=== PATIENT | female | born 1985 | race Caucasian/White ===

== ENCOUNTER 2018-01-03 06:57 | Emergency (ER) | payer OTHER ==
[2018-01-03 07:09] VITALS: TEMP 98.2
--- NOTE | 2018-01-03 07:50 | ED ---
General Adult HPI - General Chief complaint: Recheck/Abnormal Lab/Rx Stated complaint: REHAB Time Seen by Provider: 01/03/18 07:22 Source: patient, RN notes reviewed Mode of arrival: ambulatory Limitations: no limitations - History of Present Illness Initial comments: Patient is a pleasant 32-year-old female presenting to the emergency department requesting rehab. Patient states she smokes methamphetamine several times a week for the past 3-4 years. Patient did smoke methamphetamine prior to coming to the emergency department today. Patient states she wants to stop smoking regular cigarettes as well as methamphetamine. Patient denies any depression or suicidal ideation. No other complaints. - Related Data Allergies Allergy/AdvReac Type Severity Reaction Status Date / Time No Known Allergies Allergy Verified 01/03/18 07:09 Review of Systems ROS Statement: Those systems with pertinent positive or pertinent negative responses have been documented in the HPI. ROS Other: All systems not noted in ROS Statement are negative. Constitutional: Denies: fever Eyes: Denies: eye pain ENT: Denies: ear pain Respiratory: Denies: cough Cardiovascular: Denies: chest pain Endocrine: Denies: fatigue Gastrointestinal: Denies: abdominal pain Genitourinary: Denies: dysuria Musculoskeletal: Denies: back pain Skin: Denies: rash Neurological: Denies: headache Past Medical History Past Medical History: No Reported History History of Any Multi-Drug Resistant Organisms: None Reported Past Surgical History: No Surgical Hx Reported Smoking Status: Current every day smoker Past Alcohol Use History: Occasional Past Drug Use History: Methamphetamine General Exam Limitations: no limitations General appearance: alert, in no apparent distress Head exam: Present: atraumatic Eye exam: Present: normal appearance, PERRL, EOMI ENT exam: Present: normal oropharynx Neck exam: Present: normal inspection Respiratory exam: Present: normal lung sounds bilaterally Cardiovascular Exam: Present: tachycardia GI/Abdominal exam: Present: soft. Absent: tenderness Extremities exam: Present: normal inspection Neurological exam: Present: alert Psychiatric exam: Present: normal affect, normal mood Skin exam: Present: normal color Course Vital Signs 01/03/18 07:04 Temperature 98.2 F Pulse Rate 117 H Respiratory 28 H Rate Blood Pressure 149/94 O2 Sat by Pulse 97 Oximetry - Reevaluation(s) Reevaluation #1: 01/03/18 08:41 I did go back to re-evaluate patient however she has eloped. Disposition Clinical Impression: Methamphetamine abuse Disposition: HOME SELF-CARE Condition: Stable Instructions: Methamphetamine Abuse (ED) Additional Instructions: Stop smoking methamphetamine. Stop all drug use. Please follow-up with primary care physician in the next day or 2 for recheck. Please follow-up with substance abuse, list provided. Return for worsening symptoms or other concerns. Is patient prescribed a controlled substance at d/c from ED?: No Referrals: Laxmi Arora MD [REFERRING] - 1-2 days Jodi Bui MD [STAFF PHYSICIAN] - 1-2 days Time of Disposition: 08:42
[2018-01-03 09:08] VITALS: BP 135/76; PULSE 102; RESP 16
== END 2018-01-03 09:07 | disposition home or self-care (01) ==
LOC: EC 06:57
DX: F15.10 Other stimulant abuse, uncomplicated (principal); R00.0 Tachycardia, unspecified; F17.210 Nicotine dependence, cigarettes, uncomplicated
CPT/HCPCS: 99283

== ENCOUNTER → 2019-02-07 | Outpatient (CLI) | payer BC, OTHER ==
--- NOTE | 2019-02-08 10:11 | US ---
EXAMINATION TYPE: US thyroid st tissue head/neck DATE OF EXAM: 02/07/2019 COMPARISON: NONE CLINICAL HISTORY: Z34.81 1st [id number] Thyroid nodule. Thyroid nodule GLAND SIZE: Right Lobe: 5.4 x 1.9 x 2.2 cm Overall Parenchyma: homogenous Left Lobe: 4.1 x 1.5 x 1.7 cm Overall Parenchyma: homogeneous Isthmus Thickness: 0.3 cm NODULES RIGHT: # of nodules measured on right: 0 LEFT: # of nodules measured on left: 0 ISTHMUS: # of nodules measured in the isthmus: 0 Bilateral neck scanned, no evidence of lymphadenopathy. IMPRESSION: Enlargement of the right thyroid lobe. The examination is otherwise unremarkable.
== END | disposition home or self-care (01) ==
LOC: RADUSMAIN 17:31
PROVIDERS: ATTEND Obstetrics & Gynecology
DX: O99.281 Endocrine, nutritional and metabolic diseases complicating pregnancy, first trimester (principal); E07.89 Other specified disorders of thyroid; Z3A.00 Weeks of gestation of pregnancy not specified
CPT/HCPCS: 76536

== ENCOUNTER 2019-07-10 08:11 | Emergency (ER) | payer BC, OTHER ==
[2019-07-10 08:17] VITALS: PULSE 90; RESP 20; TEMP 97.8
--- NOTE | 2019-07-10 08:47 | ED ---
Chest Pain HPI - General Chief Complaint: Chest Pain Stated Complaint: lung pain Time Seen by Provider: 07/10/19 08:20 Source: patient, RN notes reviewed Mode of arrival: wheelchair - History of Present Illness Initial Comments: This is a 34-year-old female who is currently 8 months who states she did have some left CVA area pain for the past 3-4 days with this morning after coughing she heard and felt a pop and has severe pain in the local area she denies any fevers chills nausea vomiting sweats no cough or phlegm production other than that mentioned above no rash no dysuria hematuria no other complaints this time. She is scheduled to have a next month on the . She also schedule see her doctor tomorrow. No other modifying factors patient state s she did take Tylenol is morning already for pain. MD Complaint: chest pain - Related Data Allergies Allergy/AdvReac Type Severity Reaction Status Date / Time No Known Allergies Allergy Verified 07/10/19 08:17 Review of Systems ROS Statement: Those systems with pertinent positive or pertinent negative responses have been documented in the HPI. ROS Other: All systems not noted in ROS Statement are negative. Past Medical History Past Medical History: No Reported History History of Any Multi-Drug Resistant Organisms: None Reported Past Surgical History: No Surgical Hx Reported Past Psychological History: No Psychological Hx Reported Smoking Status: Current every day smoker Past Alcohol Use History: Occasional Past Drug Use History: None Reported, Methamphetamine General Exam - General Exam Comments Initial Comments: This is a well-developed well-nourished awake alert oriented 3 female General appearance: alert, in no apparent distress Head exam: Present: atraumatic, normocephalic, normal inspection Eye exam: Present: normal appearance, PERRL, EOMI. Absent: scleral icterus, conjunctival injection, periorbital swelling ENT exam: Present: normal exam, mucous membranes moist Neck exam: Present: normal inspection. Absent: tenderness, meningismus, lymphadenopathy Respiratory exam: Present: normal lung sounds bilaterally, chest wall tenderness (Tennis palpation of the left CVA region no overt step-off or crepitation there is tenderness over the intercostal as well as rib area at this region. No rashes noted). Absent: respiratory distress, wheezes, rales, rhonchi, stridor Cardiovascular Exam: Present: regular rate, normal rhythm, normal heart sounds. Absent: systolic murmur, diastolic murmur, rubs, gallop, clicks GI/Abdominal exam: Present: soft, normal bowel sounds, other (Distended consistent with gestational age). Absent: distended, tenderness, guarding, rebound, rigid Extremities exam: Present: normal inspection, full ROM, normal capillary refill. Absent: tenderness, pedal edema, joint swelling, calf tenderness Back exam: Present: normal inspection Neurological exam: Present: alert, oriented X3, CN II-XII intact Psychiatric exam: Present: normal affect, normal mood Skin exam: Present: warm, dry, intact, normal color. Absent: rash Course Vital Signs 07/10/19 08:14 Temperature 97.8 F Pulse Rate 90 Respiratory 20 Rate Blood Pressure 131/87 O2 Sat by Pulse 100 Oximetry Chest Pain MDM - MDM I did review the imaging and report no acute findings also the UA was unremarkable. I did discuss findings with the patient the presentation is consistent with musculoskeletal pain she likely pulse of intercostal muscles when she did a maneuver this morning. She will take Tylenol we did discuss dosing warm compresses to the area she does have a follow-up with her doctor next week. Her point was changed by her physician this morning. Disposition Clinical Impression: Chest wall muscle strain, Intrauterine Disposition: HOME SELF-CARE Condition: Good Instructions (If sedation given, give patient instructions): Muscle Strain (ED), Musculoskeletal Pain (ED) Additional Instructions: Warm compresses to the area as needed, Tylenol for pain, keep your follow-up wit h your physician. Is patient prescribed a controlled substance at d/c from ED?: No Referrals: None,Stated [Primary Care Provider] - 1-2 days
[2019-07-10 09:10] LABS: Bacteria,Urine Occasional /hpf; Mucus,Urine Many /hpf; RBC,Urine 2 /hpf (0-5); Squamous Epithelial Cell,Urine 28 /hpf (0-4); WBC,Urine 4 /hpf (0-5)
[2019-07-10 09:14] LABS: Color,Urine Yellow
[2019-07-10 09:15] LABS: Appearance,Urine Slightly Cloudy (Clear); Bilirubin,Urine Negative (Negative); Blood,Urine Negative (Negative); Glucose,Urine (UA) Negative (Negative); Ketones,Urine Negative (Negative); Leukocyte Esterase,Urine Small (Negative); Nitrite,Urine Negative (Negative); Protein,Urine Negative (Negative); Specific Gravity,Urine 1.005 (1.001-1.035); Urobilinogen,Urine <2.0 mg/dL (<2.0)
--- NOTE | 2019-07-10 09:24 | XR ---
EXAMINATION TYPE: XR ribs LT w pa chest xray DATE OF EXAM: 07/10/2019 COMPARISON: Chest x-ray 03/17/2009 HISTORY: Left rib pain following coughing TECHNIQUE: Chest examined in the frontal projection. Left ribs are examined in 2 views. Patient was c arefully shielded for . FINDINGS: No acute left rib fractures are evident. No pneumothorax is evident. Heart and mediastinum appear normal. Pulmonary vasculature is normal. IMPRESSION: 1. Normal chest and left ribs.
[2019-07-10 10:46] VITALS: BP 128/69
== END 2019-07-10 10:46 | disposition home or self-care (01) ==
LOC: EC 08:11
DX: O9A.213 Injury, poisoning and certain other consequences of external causes complicating pregnancy, third trimester (principal); S29.011A Strain of muscle and tendon of front wall of thorax, initial encounter; O99.333 Smoking (tobacco) complicating pregnancy, third trimester; F17.200 Nicotine dependence, unspecified, uncomplicated; X50.9XXA Other and unspecified overexertion or strenuous movements or postures, initial encounter; Y93.89 Activity, other specified; Z3A.34 34 weeks gestation of pregnancy
CPT/HCPCS: 81001; 99283

== ENCOUNTER 2019-08-08 06:07 | Inpatient (IN) | payer BC, OTHER ==
[2019-08-06 11:47] VITALS: BMI 35.9
--- NOTE | 2019-08-06 16:06 | P.HPOB ---
History of Present Illness H&P Date: 08/06/19 Chief Complaint: Intrauterine at term: Previous sections Anu is a 34-year-old with 2 prior sections who arrives for repeat section. Risks/benefits/alternatives to this procedure were reviewed with the patient in detail and did include but were not limited to damage to bladder, bowel, vascular injuries, nerve damage, bleeding and infection. Her Precis course generally speaking has been unremarkable and she is feeling well at this time. She is scheduled for repeat section. On physical exam vital signs are stable and afebrile. She is a well-developed well-nourished female whose HEENT is unremarkable. Heart regular, lungs clear, extremities without pain. Abdomen soft gravid uterus is noted. Extremities without pain. Intrauterine at term: Prior sections Plan repeat low transverse section Past Medical History Past Medical History: No Reported History History of Any Multi-Drug Resistant Organisms: None Reported Past Surgical History: Section Additional Past Surgical History / Comment(s): C-SEC X 2 Past Anesthesia/Blood Transfusion Reactions: No Reported Reaction Smoking Status: Current every day smoker - Past Family History Mother Family Medical History: No Reported History Medications and Allergies Home Medications Medication Instructions Recorded Confirmed Type Pnv,Calcium 72/Iron/Folic Acid 1 each PO DAILY 08/06/19 08/06/19 History [ Plus Tablet] Allergies Allergy/AdvReac Type Severity Reaction Status Date / Time No Known Allergies Allergy Verified 08/06/19 11:40 Exam Osteopathic Statement: *. No significant issues noted on an osteopathic structural exam other than those noted in the History and Physical/Consult. Intake and Output 08/06/19 08/06/19 08/06/19 06:59 14:59 22:59 Other: Weight 94.801 kg
[2019-08-08] MEDS ORDERED: CITRIC ACID-SODIUM CITRATE 15 ML CUP PO ONE (06:16)
[2019-08-08] MEDS: LACTATED RINGERS 1,000 ML IV SCH ×4 (06:28→22:08)
[2019-08-08 07:46] LABS: Basophils % (A) 0 %; Eosinophils # (A) 0.1 k/uL (0-0.7); Eosinophils % (A) 1 %; HCT 36.2 % (34.0-46.0); HGB 11.5 gm/dL (11.4-16.0); Lymphocytes # (A) 3.4 k/uL (1.0-4.8); Lymphocytes % (A) 23 %; MCH 27.5 pg (25.0-35.0); MCHC 31.8 g/dL (31.0-37.0); MCV 86.4 fL (80.0-100.0); Mean Platelet Volume 8.3; Monocytes # (A) 0.8 k/uL (0-1.0); Monocytes % (A) 5 %; Neutrophils % (A) 68 %; Platelet Count 439 k/uL (150-450); RBC 4.19 m/uL (3.80-5.40); RDW 14.3 % (11.5-15.5); WBC 14.7 k/uL (3.8-10.6)
[2019-08-08] MEDS ORDERED: NALBUPHINE 10 MG/ML (1 ML AMP) ONE (08:00)
[2019-08-08] MEDS ORDERED: OXYTOCIN 10 UNIT/ML 1 ML VIAL ONE (08:00)
[2019-08-08] MEDS ORDERED: ONDANSETRON 4 MG/2 ML VIAL ONE (08:00)
[2019-08-08] MEDS ORDERED: KETOROLAC 30 MG/ML 1 ML VIAL ONE (08:00)
[2019-08-08] MEDS ORDERED: MORPHINE SULFATE (PF) 0.3 MG/0.3 ML SYR ONE (08:00)
[2019-08-08] MEDS ORDERED: diphenhydrAMINE 50 MG CAP PO PRN (09:06)
[2019-08-08] MEDS ORDERED: METOCLOPRAMIDE 5 MG/ML 2 ML VIAL IVP PRN (09:06)
[2019-08-08] MEDS ORDERED: NALOXONE 0.4 MG/ML 1 ML VIAL IV PRN (09:06)
[2019-08-08] MEDS ORDERED: diphenhydrAMINE 50 MG/ML 1 ML VIAL IVP PRN ×2 (09:06)
[2019-08-08] MEDS ORDERED: ONDANSETRON 4 MG/2 ML VIAL IVP PRN (09:06)
[2019-08-08] MEDS ORDERED: diphenhydrAMINE 25 MG CAP PO PRN (09:06)
[2019-08-08] MEDS ORDERED: ACETAMINOPHEN TAB 325 MG TAB PO PRN (09:06)
[2019-08-08] MEDS ORDERED: ZOLPIDEM 5 MG TAB PO PRN (09:06)
--- NOTE | 2019-08-08 09:10 | P.OP ---
Date of Procedure: 08/08/19 Preoperative Diagnosis: Intrauterine at term: Prior sections Postoperative Diagnosis: Same Procedure(s) Performed: Repeat low transverse section Anesthesia: spinal Surgeon: Ruddy Lizama [employer] Technician #1: Bailey Quinn Estimated Blood Loss (ml): 400 IV fluids (ml): 700 Urine output (ml): 200 Pathology: none sent Condition: stable Disposition: floor Operative Findings: Male scores of 8 and 9 at one and 5 minutes Fowler and weight was 8 lbs. 9 oz. Description of Procedure: Patient was taken to the operating suite where a spinal anesthetic was found be adequate. She was prepped and draped in the normal sterile fashion and placed in dorsal supine position with leftward tilt. Initially a Pfannenstiel skin incision was made and this incision was then carried through to the underlying layer of the fascia with the second knife. Fascia was then nicked in the midline and this opening was extended laterally with Oswald scissors. Superior and inferior aspect of this incision were then grasped tented up and bluntly and sharply dissected off the rectus muscles. Rectus muscles were then divided the midline and sharp dissection the peritoneum was done. This opening was then extended superiorly and inferiorly with good visualization of both bowel bladder using Metzenbaum scissors. Once this was completed bladder blade was placed bladder flap identified and with metastases from scissors and carried across face uterus. It was then bluntly dissected out of the operative field. Knife was then used to incise uterus was fully developed with a hemostat was clear fluid noted. It was then extended bluntly and head was atraumatically delivered. Mouth nares bulb suctioned anterior posterior shoulders easily delivered once baby was fully delivered umbilical cord was clamped cut usual fashion an nursery personnel was present to assume care. Placenta was then delivered intact and Pitocin was added to the IV. Uterus was then exteriorized cleared of clots and debris and closed in 1 layer with 0 Vicryl suture. Once excellent hemostasis was obtained blood and debris was suctioned from the posterior cul-de-sac and uterus was reinserted into the abdomen. Peritoneal layer was then closed with 0 Vicryl suture. Fascial layer was closed with 0 Vicryl suture. 3-0 Vicryl was used to reapproximate the subcuticular layer and the skin was closed with 3-0 Vicryl subcuticular. Sponge, lap, needle counts were all correct 2. Patient was then taken to the recovery room in stable and satisfactory condition.
[2019-08-08] MEDS: NICOTINE 14MG/24HR PATCH TRANSDERM SCH (10:41)
[2019-08-08] MEDS: KETOROLAC 30 MG/ML 1 ML VIAL IVP PRN ×2 (16:40→22:21)
[2019-08-08] MEDS: SENNOSIDES-DOCUSATE SODIUM 1 EACH TAB PO SCH (19:54)
[2019-08-09] MEDS: KETOROLAC 30 MG/ML 1 ML VIAL IVP PRN (05:31)
--- NOTE | 2019-08-09 07:14 | P.PN ---
Progress Note - Text Progress Note Date: 08/09/19 Patient doing well. Pain treated. Ambulating without weakness or paresthesia. Denies headache or pruritis. POD#1 s/p with spinal duramorph - doing well
[2019-08-09] MEDS: SENNOSIDES-DOCUSATE SODIUM 1 EACH TAB PO SCH ×2 (08:19→19:43)
--- NOTE | 2019-08-09 09:06 | P.PNOBGPC ---
Subjective - Subjective Principal diagnosis: Postop day 1 Interval history: Anu is seen and evaluated. She says she feels fine she is not having any complaints. She is requesting discharge home. However, she has not used her incentive spirometry despite multiple instructions and requests. Her left lung continues to have significant wheezing and her right long had minimal excursion when I was listening. We'll have rest for therapy, and reevaluate to determine if she needs a breathing treatment. Consideration for pulmonology is also possible. Chest x-ray has been ordered. Currently Anu is very upset and tearful as I informed her that I would not discharge her in her current con dition. Her vital signs otherwise are stable and she is afebrile. I have significant concern that with her lack of cooperation with the incentive spirometry that she will go home and not use it and end up having atelectasis change into potentially pneumonia. From what I can gather with her discussions with me her bigger issue is wanting to go home no matter what and I don't believe this is simply a matter that she wants to smoke or if her the nicotine patch is not high enough dose that she is still having withdrawal symptoms and we need to adjust the dose to 21 mg patch. Objective - Vital Signs Latest vital signs: Vital Signs Temp Pulse Resp BP BP Pulse Ox 08/09/19 08:00 97.6 F 80 18 115/56 97 08/09/19 03:35 98.3 F 72 18 98/52 96 08/09/19 00:00 98.4 F 78 16 141/67 97 08/08/19 20:00 97.9 F 67 16 125/76 97 08/08/19 16:00 98.2 F 82 16 140/87 99 08/08/19 12:00 98.0 F 73 16 118/82 98 08/08/19 10:45 98.0 F 65 16 138/79 98 08/08/19 10:15 68 16 117/66 93 L 08/08/19 09:45 66 16 128/78 98 08/08/19 09:30 75 16 136/63 98 08/08/19 09:15 90 16 165/104 97 Intake and Output 08/08/19 08/09/19 08/09/19 22:59 06:59 14:59 Intake Total 600 Output Total 1000 Balance -1000 600 Intake: IV 600 Output: Urine 1000 Uretheral (Morales) 400 Other: Voiding Method Toilet # Voids 1 1 - Exam Lungs: right: crackles/rales, diminished throughout, left: wheezes Chest: Normal S1, Normal S2 Extremities: Present: normal Abdomen: Present: normal appearance, soft. Absent: distention, tenderness Incision: Present: normal, dry, intact Uterus: Present: normal, firm
[2019-08-09] MEDS: HYDROcodone/APAP 7.5-325MG 1 EACH TAB PO PRN ×3 (09:18→23:13)
[2019-08-09] MEDS: ALBUTEROL NEBULIZED 2.5 MG/3 ML INHALATION PRN ×3 (09:27→20:56)
--- NOTE | 2019-08-09 10:02 | XR ---
EXAMINATION TYPE: XR chest 2V DATE OF EXAM: 08/09/2019 HISTORY: pneumonia. REFERENCE: Previous study dated 07/10/2019. FINDINGS: The lungs remain clear. Pleural spaces are clear. The heart is not enlarged. IMPRESSION: NO ACUTE INTRATHORACIC ABNORMALITY.
[2019-08-09] MEDS: NICOTINE 14MG/24HR PATCH TRANSDERM SCH (10:06)
[2019-08-09] MEDS: IBUPROFEN 600 MG TAB PO PRN (19:43)
[2019-08-10] MEDS: IBUPROFEN 600 MG TAB PO PRN ×2 (06:23→12:36)
[2019-08-10] MEDS: ALBUTEROL NEBULIZED 2.5 MG/3 ML INHALATION PRN ×2 (07:20→13:06)
[2019-08-10 08:16] VITALS: BP 137/80; RESP 16; TEMP 98
[2019-08-10] MEDS: SENNOSIDES-DOCUSATE SODIUM 1 EACH TAB PO SCH (08:52)
[2019-08-10] MEDS: NICOTINE 14MG/24HR PATCH TRANSDERM SCH (10:08)
[2019-08-10] MEDS: HYDROcodone/APAP 7.5-325MG 1 EACH TAB PO PRN (10:08)
[2019-08-10 13:17] VITALS: PULSE 88
== END 2019-08-10 14:45 | disposition home or self-care (01) | DRG 788 ==
LOC: 4FBP 06:07
PROVIDERS: ADMIT Obstetrics & Gynecology; ATTEND Obstetrics & Gynecology
PROC: 10D00Z1 Extraction of Products of Conception, Low, Open Approach (ICD-10-PCS; principal; 2019-08-08 08:00)
DX: O34.211 Maternal care for low transverse scar from previous cesarean delivery (principal); O99.334 Smoking (tobacco) complicating childbirth; F17.210 Nicotine dependence, cigarettes, uncomplicated; R06.2 Wheezing; Z79.899 Other long term (current) drug therapy; O99.284 Endocrine, nutritional and metabolic diseases complicating childbirth; E04.1 Nontoxic single thyroid nodule; Z3A.39 39 weeks gestation of pregnancy; Z37.0 Single live birth; Z91.19 Patient's noncompliance with other medical treatment and regimen
CPT/HCPCS: 71046; 85025; 86850; 86900; 86901; 94640